=== PATIENT | female | born 1950 | race Caucasian/White ===

== ENCOUNTER 2016-07-29 16:08 | Emergency (ER) | payer MEDICARE ==
[~2016-07-29] VITALS: Ht 162.6 cm; Wt 140.6 kg
[2016-07-29] MEDS ORDERED: GABA600T2 PO (16:27)
[2016-07-29] MEDS ORDERED: METO25TA9 PO (16:29)
[2016-07-29] MEDS ORDERED: PANT20TA2 PO (16:30)
[2016-07-29] MEDS ORDERED: WARF5TAB PO (16:30)
[2016-07-29] MEDS ORDERED: TRAM50TA PO (16:31)
[2016-07-29] MEDS ORDERED: LORA0.5T96 PO (16:31)
--- NOTE | 2016-07-29 17:21 | RAD ---
Left leg venous Doppler study: Clinical indications: Left leg swelling and pain. Findings: Duplex sonography (including green scale evaluation and color flow and waveform spectral analysis) of the proximal aspect of the greater saphenous vein and the proximal aspect of the profunda femoral vein and the entire length of the common femoral and superficial femoral and popliteal veins of the left leg was performed. Normal compressibility, augmentation of color Doppler flow after calf compression, and respiratory variation of Doppler flow is seen. Thus, there are no sonographic findings of deep venous thrombosis within these veins. The calf veins could not be visualized due to to leg swelling. Impression: No deep venous thrombosis within the femoral popliteal segment of the left lower extremity. The calf veins cannot be visualized in this study. If pain and swelling progress, then a follow-up venous duplex examination in 2-3 days may be helpful to exclude any proximal propagation of thrombosis into the femoral popliteal segment from occult venous thrombosis in the calf veins.
[2016-07-29 17:23] LABS: BASO # 0.1 x10^3/uL (0.0-0.2); BASO % 1 % (0-3); EOS % 4 % (0-3); HEMATOCRIT 33.2 % (36.0-47.0); HEMOGLOBIN 10.2 g/dL (12.0-15.5); LYMPH # 1.9 x10^3/uL (1.0-4.8); LYMPH % 29 % (24-48); MEAN CORPUSCULAR HEMOGLOBIN 25 pg (25-35); MEAN CORPUSCULAR HGB CONC 31 g/dL (31-37); MEAN CORPUSCULAR VOLUME 81 fL (79-100); MONO % 11 % (0-9); NEUT % 55 % (31-73); PLATELET COUNT 223 x10^3/uL (140-400); RED BLOOD COUNT 4.08 x10^6/uL (3.50-5.40); RED CELL DISTRIBUTION WIDTH 15.3 % (11.5-14.5); WHITE BLOOD COUNT 6.5 x10^3/uL (4.0-11.0)
[2016-07-29 17:32] LABS: CALCIUM 8.7 mg/dL (8.5-10.1); GFR 55.1; POTASSIUM 4.2 mmol/L (3.5-5.1)
[2016-07-29 17:33] LABS: INR 1.7 (0.8-1.1); PROTHROMBIN TIME PATIENT 18.6 SEC (11.7-14.0)
--- NOTE | 2016-07-29 17:52 | PHYS DOC ---
Past Medical History Past Medical History: Cancer, GERD, Hypertension, Other Additional Past Medical Histor: uterine cancer, left bundle branch block (not new per patient) Past Surgical History: Cholecystectomy, Hysterectomy, Knee Replacement Additional Past Surgical Histo: back surgery Alcohol Use: None Drug Use: None Adult General Chief Complaint Chief Complaint: LOWER EXTREMITY SWELLING HPI HPI 66-year-old female coming [facility] for increasing left lower externally swelling that she is noted for the last day. Patient has significant history of approximately one month ago having a traumatic fall and multiple fractures in the left lower extremity requiring multiple surgeries in her ankle and knee. She has been in rehabilitation and she is nonweightbearing on that left lower extremity. Patient is on Coumadin therapy which she has been on for she states over 40 years. She denies any significant fever, nausea, vomiting, or shortness of breath. She denies any significant tenderness in the extremity above her usual. She does take tramadol for her symptoms that she has NSAID and opiate allergies. Review of Systems Review of Systems Constitutional: Denies fever or chills [] Eyes: Denies change in visual acuity, redness, or eye pain [] HENT: Denies nasal congestion or sore throat [] Respiratory: Denies cough or shortness of breath [] Cardiovascular: No additional information not addressed in HPI [] GI: Denies abdominal pain, nausea, vomiting, bloody stools or diarrhea [] : Denies dysuria or hematuria [] Musculoskeletal: Denies back pain or joint pain, has joint swelling [] Integument: Denies rash or skin lesions [] Neurologic: Denies headache, focal weakness or sensory changes [] Endocrine: Denies polyuria or polydipsia [] Allergies Allergies Allergies Coded Allergies Type Severity Reaction Last Updated Verified Opioids - Morphine Analogues Allergy Severe 07/29/16 Yes NSAIDS (Non-Steroidal Anti-Inflamma Adverse Reaction Unknown GI distress Yes Physical Exam Physical Exam Constitutional: Well developed, obese, well nourished, no acute distress, non- toxic appearance. [] HENT: Normocephalic, atraumatic, bilateral external ears normal, oropharynx moist, no oral exudates, nose normal. [] Eyes: PERRLA, EOMI, conjunctiva normal, no discharge. [] Neck: Normal range of motion, no tenderness, supple, no stridor. [] Cardiovascular:Heart rate regular rhythm, no murmur [] Lungs & Thorax: Bilateral breath sounds clear to auscultation [] Abdomen: Bowel sounds normal, soft, no tenderness, no masses, no pulsatile masses. [] Skin: Warm, dry, no erythema, no rash. [] Back: No tenderness, no CVA tenderness. [] Extremities: Significant tenderness to the left lower extremity, Surgical incisions appears clean, dry, intact. There is no evidence of cellulitis. There is no erythema. There is some mild swelling seen in the left lower extremity, no cyanosis, no clubbing, ROM intact. [] Neurologic: Alert and oriented X 3, normal motor function, normal sensory function, no focal deficits noted. [] Psychologic: Affect normal, judgement normal, mood normal. [] Current Patient Data Vital Signs Vital Signs Date Time Temp Pulse Resp B/P Pulse Ox O2 Delivery O2 Flow Rate FiO2 07/29/16 16:08 98.3 80 18 214/96 93 Room Air 98.3 Lab Values Laboratory Tests Test 07/29/16 17:14 White Blood Count 6.5x10^3/uL (4.0-11.0) Red Blood Count 4.08x10^6/uL (3.50-5.40) Hemoglobin 10.2g/dL (12.0-15.5) L Hematocrit 33.2% (36.0-47.0) L Mean Corpuscular Volume 81fL (79-100) Mean Corpuscular Hemoglobin 25pg (25-35) Mean Corpuscular Hemoglobin Concent 31g/dL (31-37) Red Cell Distribution Width 15.3% (11.5-14.5) H Platelet Count 223x10^3/uL (140-400) Neutrophils (%) (Auto) 55% (31-73) Lymphocytes (%) (Auto) 29% (24-48) Monocytes (%) (Auto) 11% (0-9) H Eosinophils (%) (Auto) 4% (0-3) H Basophils (%) (Auto) 1% (0-3) Neutrophils # (Auto) 3.6x10^3uL (1.8-7.7) Lymphocytes # (Auto) 1.9x10^3/uL (1.0-4.8) Monocytes # (Auto) 0.7x10^3/uL (0.0-1.1) Eosinophils # (Auto) 0.3x10^3/uL (0.0-0.7) Basophils # (Auto) 0.1x10^3/uL (0.0-0.2) Prothrombin Time 18.6SEC (11.7-14.0) H Prothrombin Time INR 1.7 (0.8-1.1) H Sodium Level 141mmol/L (136-145) Potassium Level 4.2mmol/L (3.5-5.1) Chloride Level 105mmol/L (98-107) Carbon Dioxide Level 31mmol/L (21-32) Anion Gap 5 (6-14) L Blood Urea Nitrogen 10mg/dL (7-20) Creatinine 1.0mg/dL (0.6-1.0) Estimated GFR (Cockcroft-Gault) 55.1 Glucose Level 113mg/dL (70-99) H Calcium Level 8.7mg/dL (8.5-10.1) Laboratory Tests 07/29/16 17:14 Laboratory Tests 07/29/16 17:14 EKG EKG [] Radiology/Procedures Radiology/Procedures Venous Doppler of the left lower extremity revealed the following: Findings: Duplex sonography (including green scale evaluation and color flow and waveform spectral analysis) of the proximal aspect of the greater saphenous vein and the proximal aspect of the profunda femoral vein and the entire length of the common femoral and superficial femoral and popliteal veins of the left leg was performed. Normal compressibility, augmentation of color Doppler flow after calf compression, and respiratory variation of Doppler flow is seen. Thus, there are no sonographic findings of deep venous thrombosis within these veins. The calf veins could not be visualized due to to leg swelling. Course & Med Decision Making Course & Med Decision Making Pertinent Labs and Imaging studies reviewed. (See chart for details) 66-year-old female had a negative left lower extremity venous Doppler for any acute DVT. I will recommend a follow-up DVT Doppler ultrasound in the next 2-3 days and to follow with her primary care doctor over a period of time as well. Laboratory workup is unrevealing. There is no indication at this time to do any further testing. She will be discharged back to her rehabilitation facility. Dragon Disclaimer Dragon Disclaimer This electronic medical record was generated, in whole or in part, using a voice recognition dictation system. Departure Departure Impression: Primary Impression: Swelling of lower extremity Disposition: 01 HOME, SELF-CARE Condition: STABLE Patient Instructions: Edema, [id number] Additional Instructions: Please obtain a follow-up ultrasound of her lower extremity in 2-3 days to confirm there is no blood clot. Follow-up with her primary care doctor in this. At time. Return to the ER if you develop any worsening of your pain or swelling. Continue to take all your medications as prescribed. MYRNA GOLDMAN DO Jul 29, 2016 17:52
[2016-07-29 19:40] VITALS: BP 118/73
== END 2016-07-29 19:50 | disposition home or self-care (01) ==
LOC: ER 16:08
DX: M79.89 Other specified soft tissue disorders (principal); K21.9 Gastro-esophageal reflux disease without esophagitis; I10 Essential (primary) hypertension; Z79.01 Long term (current) use of anticoagulants; Z88.5 Allergy status to narcotic agent; Z88.8 Allergy status to other drugs, medicaments and biological substances
CPT/HCPCS: 36415; 80048; 85027; 85610; 93971; 99285-25